=== PATIENT | female | born 1955 | race Caucasian/White ===

== ENCOUNTER 2016-10-26 10:51 | Observation (INO) | payer OTHER ==
[2016-10-26 10:52] VITALS: BMI 20.7
--- NOTE | 2016-10-26 11:55 | ED PDOC ---
Arrival/HPI - General Chief Complaint: Dizziness/Lightheaded Time Seen by Provider: 10/26/16 11:10 Historian: Patient, Family - History of Present Illness Narrative History of Present Illness (Text): 10/26/16 11:35 A 61 year old female, whose past medical history includes hypertension, high cholesterol, diabetes and coronary artery disease, presents to the emergency department complaining of worsening dizziness this morning associated with n/v. Patient states it is like room spinning. Patient reports she feels symptoms are similar to past stroke symptoms. Patient also reports vomiting, but denies any headache, vision changes, weakness, shortness of breath, chest pain, heart palpitations, fevers, abdominal pain or any other complaints at this time. Patient currently reports she has no dizziness or nausea. PMD: Dr. Vail Time/Duration: < week Past Medical History - Provider Review Nursing Documentation Reviewed: Yes - Cardiac Hx Hypertension: Yes Hx Pacemaker: No - Neurological HX Cerebrovascular Accident: Yes Hx Paralysis: No Hx Transient Ischemic Attacks (TIA): Yes - Endocrine/Metabolic Hx Diabetes Mellitus Type 2: Yes - Hematological/Oncological Hx Blood Transfusions: No Hx Blood Transfusion Reaction: No - Musculoskeletal/Rheumatological Hx Musculoskeletal Disorders: No - Psychiatric Hx Emotional Abuse: No Hx Physical Abuse: No Hx Substance Use: No - Surgical History Hx Cardiac Catheterization: Yes (2 stents) - Anesthesia Hx Anesthesia: Yes Hx Anesthesia Reactions: No Hx Malignant Hyperthermia: No - Suicidal Assessment Feels Threatened In Home Enviroment: No Family/Social History - Physician Review Nursing Documentation Reviewed: Yes Family/Social History: No Known Family HX Smoking Status: Never Smoked Hx Alcohol Use: No Hx Substance Use: No Hx Substance Use Treatment: No Allergies/Home Meds Allergies/Adverse Reactions: Allergies No Known Allergies Allergy (Verified 03/01/12 08:55) Home Medications: Home Meds Medication Instructions Recorded Confirmed Aspirin [Ecotrin] 325 mg PO DAILY 03/01/12 03/01/12 Enalapril Maleate [Enalapril] 5 mg PO BID 03/01/12 03/01/12 Gabapentin [Neurontin] 300 mg PO TID 03/01/12 03/01/12 Metformin Hydrochloride [Metformin] 500 mg PO TID 03/01/12 03/01/12 Simvastatin 40 mg PO DIN 03/01/12 03/01/12 Clopidogrel Hydrogen Sulfate 75 mg PO DAILY 03/06/12 03/06/12 [Plavix] Metoprolol Tartrate [Lopressor] 25 mg PO BID 03/06/12 03/06/12 Review of Systems - Physician Review All systems were reviewed & negative as marked: Yes - Review of Systems Constitutional: absent: Fevers Eyes: absent: Vision Changes ENT: Normal Respiratory: absent: SOB Cardiovascular: absent: Chest Pain Gastrointestinal: Vomiting. absent: Abdominal Pain Genitourinary Female: absent: Dysuria Neurological: Dizziness, Disequilibrium. absent: Headache, Focal Weakness Endocrine: absent: Polyuria Hemo/Lymphatic: Normal Physical Exam Vital Signs Reviewed: Yes Vital Signs Temp Pulse Resp BP Pulse Ox 10/26/16 10:52 98.4 F 74 17 188/93 H 100 Temperature: Afebrile Blood Pressure: Hypertensive Pulse: Regular Respiratory Rate: Normal Appearance: Positive for: Well-Appearing, Non-Toxic, Comfortable Pain Distress: None Mental Status: Positive for: Alert and Oriented X 3 - Systems Exam Head: Present: Atraumatic, Normocephalic Pupils: Present: PERRL Extroacular Muscles: Present: EOMI Conjunctiva: Present: Normal Mouth: Present: Moist Mucous Membranes Pharnyx: Present: Normal. No: ERYTHEMA, EXUDATE Neck: Present: Normal Range of Motion Respiratory/Chest: Present: Clear to Auscultation, Good Air Exchange. No: Respiratory Distress, Accessory Muscle Use Cardiovascular: Present: Regular Rate and Rhythm, Normal S1, S2. No: Murmurs Abdomen: Present: Normal Bowel Sounds. No: Tenderness, Distention, Peritoneal Signs Upper Extremity: Present: Normal Inspection. No: Cyanosis, Edema Lower Extremity: Present: Normal Inspection. No: Edema Neurological: Present: GCS=15, CN II-XII Intact, Speech Normal, Motor Func Grossly Intact, Normal Cerebellar Funct, Other (normal alternating lap movments and heel to garcia ) Skin: Present: Warm, Dry, Normal Color. No: Rashes Psychiatric: Present: Alert, Oriented x 3, Normal Insight, Normal Concentration Medical Decision Making ED Course and Treatment: 10/26/16 11:58 Impression: 61 year old female presents with worsening dizziness this morning. Differential Diagnosis included but are not limited to: peripheral vertigo vs. TIA vs. cardiogenic etiology Plan: -- CT head wo contrast -- Chest Xray -- Urinalysis -- Labs -- Reassess and disposition Prior Visits: Notes and results from previous visits were reviewed. On 03/01/12 patient came to emergency department complaining of nausea, vomiting and diaphoresis. Patient was transferred to observation for cardiology evaluation and serial troponins to rule out [place]. Progress Notes: EKG: Ordered, reviewed, and independently interpreted the EKG. Rate : 58 BPM Rhythm : Sinus Bradycardia Interpretation : Normal intervals, normal axis, no ST/T changes Comparison : No previous EKG for comparison. 10/26/16 14:32 Patient with noted history - neuro exam is unremarkable here. Brain CT with no intracranial findings. Given history of previous CVA - will need to place on observation for further neuro eval. Discussed with Dr. Vail, who requested for Dr. Roberts and Dr. Becker to evaluate and placement on her service. - Lab Interpretations Lab Results: 10/26/16 11:35 10/26/16 11:35 Lab Results 10/26/16 12:00: Urine Color Light yellow, Urine Appearance Clear, Urine pH 7.0, Ur Specific [place] 1.010, Urine Protein Negative, Urine Glucose (UA) Negative, Urine Ketones Negative, Urine Blood Negative, Urine Nitrate Negative, Urine Bilirubin Negative, Urine Urobilinogen 0.2, Ur Leukocyte Esterase Negative 10/26/16 11:35: Sodium 137, Potassium 5.5 H, Chloride 101, Carbon Dioxide 26, Anion Gap 16, BUN 18, Creatinine 0.8, Est GFR ( Amer) > 60, Est GFR (Non- Af Amer) > 60, Random Glucose 196 H, Calcium 9.8, Magnesium 1.9, Total Bilirubin 0.7, AST 34, ALT 41, Alkaline Phosphatase 66, Lactate Dehydrogenase 435, Total Creatine Kinase 97, Troponin I < 0.01, Total Protein 8.4 H, Albumin 4.7, Globulin 3.7, Albumin/Globulin Ratio 1.3, Lipase 168 10/26/16 11:35: PT 9.9, INR 0.92 L, APTT 26.2 10/26/16 11:35: WBC 6.7, RBC 4.57, Hgb 12.7, Hct 38.0, MCV 83.2, MCH 27.8, MCHC 33.4, RDW 13.4, Plt Count 287, MPV 9.6, Gran % 66.5, Lymph % (Auto) 28.5, [place] % (Auto) 3.1, Eos % (Auto) 1.5, Baso % (Auto) 0.4, Gran # 4.48, Lymph # 1.9, [place] # 0.2, Eos # 0.1, Baso # 0.03 I have reviewed the lab results: Yes - RAD Interpretation Radiology Orders: 10/26/16 11:35 CHEST TWO VIEWS (PA/LAT) [RAD] Stat 10/26/16 11:36 Brain [HEAD W/O CONTRAST] [CT] Stat - Medication Orders Current Medication Orders: Discontinued Medications Sodium Polystyrene Sulfonate (Kayexalate Oral Susp) 30 gm PO STAT STA Stop: 10/26/16 12:19 Last Admin: 10/26/16 14:01 Dose: 30 gm - Scribe Statement The provider has reviewed the documentation as recorded by the Scribjosé Jimenez All medical record entries made by the Allisonibjosé were at my direction and personally dictated by me. I have reviewed the chart and agree that the record accurately reflects my personal performance of the history, physical exam, medical decision making, and the department course for this patient. I have also personally directed, reviewed, and agree with the discharge instructions and disposition. Disposition/Present on Arrival - Present on Arrival Any Indicators Present on Arrival: No History of DVT/PE: No History of Uncontrolled Diabetes: No Urinary Catheter: No History of Decub. Ulcer: No History Surgical Site Infection Following: None - Disposition Have Diagnosis and Disposition been Completed?: Yes Diagnosis: Dizziness, Vertigo Disposition: HOSPITALIZED Disposition Time: 14:25 Patient Plan: Observation Condition: FAIR
[2016-10-26 11:57] LABS: ADD MANUAL DIFF? NO
[2016-10-26 12:04] LABS: BASO # 0.03 K/mm3 (0.0-2.0); BASO % 0.4 % (0.0-3.0); EOS # 0.1 (0.0-0.7); EOS % 1.5 % (1.5-5.0); GRAN # 4.48 (1.4-6.5); GRAN % 66.5 % (50.0-68.0); LYMPH # 1.9 (1.2-3.4); LYMPH % 28.5 % (22.0-35.0); MEAN CELL VOLUME 83.2 fL (80.0-105.0); MEAN CORPUSCULAR HEMOGLOBIN 27.8 pg (25.0-35.0); MEAN CORPUSCULAR HGB CONC 33.4 g/dl (31.0-37.0); MEAN PLATELET VOLUME 9.6 fl (7.0-11.0); MONO # 0.2 (0.1-0.6); MONO % 3.1 % (1.0-6.0); PLATELET COUNT 287 10^3/uL (120.0-450.0); RED CELL DISTRIBUTION WIDTH 13.4 % (11.5-14.5); WHITE BLOOD COUNT 6.7 10^3/ul (4.5-11.0)
[2016-10-26 12:12] LABS: INR 0.92 (0.93-1.08); PARTIAL THROMBOPLASTIN TIME 26.2 Seconds (23.7-30.8)
[2016-10-26 12:13] LABS: ALB/GLOB RATIO 1.3 (1.1-1.8); ALKALINE PHOSPHATASE 66 U/L (38-133); ALT/SGPT 41 U/L (7-56); AST/SGOT 34 U/L (15-39); BILIRUBIN,TOTAL 0.7 mg/dL (0.2-1.3); BLOOD UREA NITROGEN 18 mg/dL (7-21); CALCIUM 9.8 mg/dL (8.4-10.5); CARBON DIOXIDE 26 mmol/L (21-33); CHLORIDE 101 mmol/L (98-107); GFR AFRICAN-AMERICAN > 60; GLUCOSE,RANDOM 196 mg/dL (70-110); MAGNESIUM 1.9 mg/dL (1.7-2.2); POTASSIUM 5.5 mmol/L (3.6-5.0); SODIUM 137 mmol/L (132-148); TOTAL PROTEIN 8.4 g/dL (5.8-8.3)
[2016-10-26] MEDS ORDERED: Sod Polystyrene Sulf 15 gm/60 ml Oral Susp PO STA (12:18)
[2016-10-26 12:22] LABS: URINE APPEARANCE CLEAR (CLEAR); URINE BILIRUBIN NEGATIVE (NEGATIVE); URINE BLOOD NEGATIVE (NEGATIVE); URINE COLOR LIGHT YELLOW (YELLOW); URINE GLUCOSE (UA) NEGATIVE (NEGATIVE); URINE KETONE NEGATIVE (NEGATIVE); URINE LEUKOCYTE ESTERASE NEGATIVE Leu/uL (NEGATIVE); URINE PROTEIN NEGATIVE mg/dL (<30 mg/dL); URINE UROBILINOGEN 0.2 E.U./dL (<1 E.U./dL)
[2016-10-26 12:32] LABS: TROPONIN I < 0.01 ng/mL
[2016-10-26 12:39] LABS: LIPASE 168 U/L (23-300)
--- NOTE | 2016-10-26 13:26 | CARD ---
APPROVED REPORT EKG Measurement Heart [id number] <Conclusion> Sinus bradycardia Otherwise normal ECG
--- NOTE | 2016-10-26 13:29 | CT ---
PROCEDURE: CT HEAD WITHOUT CONTRAST. HISTORY: dizzy; h/o CVA COMPARISON: None available. TECHNIQUE: Axial computed tomography images were obtained through the head/brain without intravenous contrast. Radiation dose: Total exam DLP = 725.84 mGy-cm. This CT exam was performed using one or more of the following dose reduction techniques: Automated exposure control, adjustment of the mA and/or kV according to patient size, and/or use of iterative reconstruction technique. FINDINGS: HEMORRHAGE: No acute parenchymal, subarachnoid or extra-axial hemorrhage. BRAIN: No mass effect or edema. No atrophy or chronic microvascular ischemic changes. Mild vascular calcifications are present. VENTRICLES: Unremarkable. No hydrocephalus. CALVARIUM: Unremarkable. PARANASAL SINUSES: Mild mucosal thickening seen within the left maxillary antrum. Note made of tiny sclerotic bony densities in 2 posterior superior ethmoid air cells consistent with small osteomas. MASTOID AIR CELLS: Unremarkable as visualized. No inflammatory changes. OTHER FINDINGS: None. IMPRESSION: No acute intracranial hemorrhage. Mild mucosal thickening left maxillary antrum.
--- NOTE | 2016-10-26 17:02 | RAD ---
HISTORY: dizzy COMPARISON: No prior. TECHNIQUE: Chest PA and lateral FINDINGS: LUNGS: No active pulmonary disease. PLEURA: No significant pleural effusion identified. No pneumothorax apparent. CARDIOVASCULAR: Heart size upper limits of normal/ borderline enlarged OSSEOUS STRUCTURES: No minor degenerative changes right shoulder girdle VISUALIZED UPPER ABDOMEN: Normal. OTHER FINDINGS: None. IMPRESSION: No active disease.
--- NOTE | 2016-10-26 21:29 | CON ---
DATE: 10/26/2016 HISTORY OF PRESENT ILLNESS: This is a 61-year-old female with a past medical history of hypertension , high cholesterol, diabetes, coronary artery disease who came to the hospital for worsening of dizzi ness, felt like a spinning-like sensation. No nausea, no vomiting. Her son is at the bedside. HOME MEDICATIONS: Aspirin and . ALLERGIES: No known drug allergy. PHYSICAL EXAMINATION: VITAL SIGNS: Blood pressure 188/93. HEENT: Normocephalic, atraumatic. NECK: Supple. NEUROLOGIC: Alert, awake, oriented x 3. No aphasia. Cranial nerves II through XII were tested. Pu pils reactive. No facial asymmetry. Tongue midline. Motor examination: Moves all the extremities equally. Tone normal. Deep tendon reflexes 1+. Both plantars are downgoing. Sensory appears intac t. Cerebellar and gait deferred. IMPRESSION AND PLAN: Dizziness, vertigo. A CT of the head was negative. Continue present managemen t. Workup is in progress. Will followup. Blas Roberts MD cc: [id number] TT: 10/26/2016 21:29:14 Confirmation # [id number] Dictation # [id number] dn
[2016-10-27 07:06] LABS: CHOLESTEROL 147 mg/dL (130-200)
[2016-10-27 07:15] LABS: TROPONIN I < 0.01 ng/mL
[2016-10-27] MEDS: Insulin Reg-LOW-Coverage SC SCH ×3 (07:43→22:04)
--- NOTE | 2016-10-27 08:55 | HP ---
The patient is a 61-year-old female. The patient was seen and examined on 2016. CHIEF COMPLAINT: Dizziness, lightheadedness. HISTORY OF PRESENT ILLNESS: The patient is a 61-year-old, my private patient, history of hypertension, hypercholesterolemia, diabetes mellitus, coronary artery disease, history of CVA. Came to the Emergency Department complaining of worsening dizziness. This morning, associated with nausea and vomiting. The patient states it was like room spinning. The patient reports that feels the symptoms are similar to the past stroke symptoms. The patient also reports of vomiting, but denies any headache, vision changes, weakness, shortness of breath, fever, chills. 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 Her son called me today about telling mother's condition, but I told him send your mother in [facility] Emergency Room. PAST MEDICAL HISTORY: Hypertension, cerebrovascular accident, TIA, diabetes mellitus, cardiac catheterization. FAMILY HISTORY: Father and mother noncontributory. HABITS: Never smoked, no drugs, no ethanol. ALLERGIES: The patient is not allergic with any medications. HOME MEDICATIONS: Aspirin, enalapril, Neurontin, metformin, simvastatin, Plavix , Lopressor. REVIEW OF SYSTEMS: The patient is seen and examined on the bedside on 2016 in the Emergency Room. That moment, she does not have any vision changes, absent shortness of breath, absent chest pain. Feeling nauseous, but no vomiting that moment. No abdominal pain. No dysuria. Having a feeling of dizziness, disequilibrium. No polyuria, no polydipsia, but the patient has history of blurring of vision. For that, she saw eye doctor a couple of days ago. PHYSICAL EXAMINATION: VITAL SIGNS: Temperature 98.4, pulse 74, respiratory rate 17, blood pressure 188/93, HEENT: Head normocephalic, atraumatic. Eyes, PERRLA. Extraocular muscles intact. Conjunctivae pink. Eyelids unremarkable. Nose patent. Mucous membranes moist. NECK: Supple. No carotid bruit, no JVD, no thyromegaly. CHEST: Bilaterally symmetrical. HEART: S1, S2 positive. LUNGS: Clear to auscultation. ABDOMEN: Soft. Bowel sounds positive. No organomegaly. EXTREMITIES: No edema, no cyanosis. NEUROLOGIC: The patient is awake, alert. Moving all 4 extremities. No focal deficits. Cranial nerves II-XII were grossly intact. LABORATORIES: White blood cells 6.7, hemoglobin 12.7, hematocrit 38.0, platelets 287. Sodium 137, potassium 5.5, BUN 18, creatinine 0.8, glucose 196. ASSESSMENT AND PLAN: The patient is a 61-year-old lady with hyperkalemia, hyperglycemia, came with dizziness, lightheadedness, history of hypertension, hypercholesterolemia, coronary artery disease, diabetes mellitus, history of cerebrovascular accident, history of cardiac catheterization. The patient is seen by Dr. Blas Roberts, neurologist. Waiting for retail personal banker's input. CAT scan of the head is done, is negative. Continue present treatment as per Dr. Roberts. Workup is in the process. Restarted home medication, fingerstick before meals and at bedtime, sliding scale. Repeat labs. Will follow up. Janie Vail MD cc: [id number] TT: 10/27/2016 08:54:51 en MTDD
[2016-10-27] MEDS: Aspirin 325 mg EC Tablets PO SCH (10:01)
--- NOTE | 2016-10-27 14:41 | CON ---
DATE: 10/27/2016 REASON FOR CONSULTATION AND FOLLOWUP: Cardiac evaluation, history of coronary artery disease, admitt ed with dizziness, uncontrolled hypertension. 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 Denies any chest pain, shortness of breath, any palpita tion. History of coronary artery disease on last stress test found. Admitted with dizzy spells in 2 012. The patient had subsequently cardiac workup that shows abnormal, so patient underwent cardiac c atheterization and a stent in the circumflex in 02/2012 and then subsequently staged angioplasty of LA D 2011. Since then, patient remained fairly stable. Denies any chest pain, shortness of breath, but yesterday found to be uncontrolled hypertension and was dizzy, so came to the Emergency Room. Denie s any recent history of chest pain, no shortness of breath, any palpitation. PAST MEDICAL HISTORY: Significant for coronary artery disease, abnormal stress test and subsequently underwent cardiac catheterization in 02/2012 and stented on the circumflex. At that time, cardiac ca theterization revealed left main normal, bifurcated to LAD and circumflex, LAD has focal 90% stenosis , gives 2 diagonal branches, circumflex 80% stenosis, OM1, OM2 and right coronary artery has 40% sten osis, PLV branch 90% stenosis, dominant system. Status post staged PTCA of LAD in 03/2012. PREVIOUS CARDIAC WORKUP: Stress test on 03/05/2012, myocardial perfusion study, walked on treadmill 6 minutes, 27 seconds and is abnormal, so patient underwent cardiac catheterization subsequently and 2 -vessel angioplasty. First, patient underwent 03/06/2012 circumflex and then LAD 04/17/2012. The pat ient remained stable. Denies any chest pain, shortness of breath, any palpitation. CURRENT MEDICATIONS: The patient is taking simvastatin, gabapentin, metformin, amlodipine, aspirin, metoprolol. REVIEW OF SYSTEMS: As per follows. ALLERGIES: No known drug allergy. PHYSICAL EXAMINATION: VITAL SIGNS: Temperature afebrile, heart rate , blood pressure 124/75. HEENT: PERRLA. Extraocular muscles intact. NECK: Supple. No carotid bruits. No thyromegaly. CHEST: Clear to auscultation. HEART: S1, S2 regular. ABDOMEN: Soft. EXTREMITIES: Clubbing, cyanosis negative. BLOOD WORKUP: WBC 6.7, hemoglobin 12.7, hematocrit 38.0, platelet count 287. Chemistry shows sodium 130, potassium 5.5, chloride 101, carbon dioxide 26, anion gap of 16, BUN 18, creatinine 0.8. Tropo sujey 0.01, negative. IMPRESSION: Though patient admitted with dizziness because of uncontrolled hypertension, given the [facility] risk factors for coronary artery disease, diabetes, hypertension, history of 2-vessel stent i n 02/2012 and 01/2012 LAD, never had a stress test, will schedule a stress test and echo while the melanie ent is here. If the patient is getting discharged, we will do as outpatient for risk stratification. Discussed with the patient. The patient is noncompliant with office visits. Interim, continue mec lizine. Continue aspirin. Continue metformin. Continue atorvastatin. Continue beta hazel. We w ill follow with you. Thank you, Dr. Vail, for providing us the opportunity in taking care of the patient. Saúl Bishop MD cc: [id number] TT: 10/27/2016 14:40:31 Confirmation # [id number] Dictation # [id number] en
[2016-10-28 00:27] VITALS: RESP 20
[2016-10-28 06:46] LABS: HEMATOCRIT 37.7 % (36.0-48.0); MEAN CELL VOLUME 83.8 fL (80.0-105.0); MEAN CORPUSCULAR HEMOGLOBIN 27.8 pg (25.0-35.0); MEAN CORPUSCULAR HGB CONC 33.2 g/dl (31.0-37.0); MEAN PLATELET VOLUME 9.6 fl (7.0-11.0); RED CELL DISTRIBUTION WIDTH 13.6 % (11.5-14.5); WHITE BLOOD COUNT 6.3 10^3/ul (4.5-11.0)
[2016-10-28 07:04] LABS: BLOOD UREA NITROGEN 23 mg/dL (7-21); CALCIUM 9.5 mg/dL (8.4-10.5); CARBON DIOXIDE 28 mmol/L (21-33); CHLORIDE 103 mmol/L (98-107); GFR AFRICAN-AMERICAN > 60; GLUCOSE,RANDOM 120 mg/dL (70-110); POTASSIUM 4.2 mmol/L (3.6-5.0); SODIUM 142 mmol/L (132-148)
--- NOTE | 2016-10-28 07:37 | PN ---
DATE: 10/27/2016 The patient is a 61-year-old. The patient was seen and examined on the bedside , looks comfortable. Chest pain is gone. Headache is better. Still feeling in the left side on the lateral side sometimes a black line is coming. Neurologist is on the case. [employer] Vehicle Supervisor is on the case. No fever, no chills, no diarrhea, no constipation. PHYSICAL EXAMINATION: VITAL SIGNS: Temperature 97.9, pulse 69, blood pressure 124/ 80 , respiratory rate 18. HEENT: Head normocephalic, atraumatic. Eyes: PERRLA. Extraocular muscles intact. Conjunctivae pink. Eyelids unremarkable. Nose patent. NECK: Supple. No carotid bruit, no JVD, no thyromegaly. CHEST: Bilaterally symmetrical. HEART: S1, S2 positive. LUNGS: Clear to auscultation. ABDOMEN: Soft. Bowel sounds present. No organomegaly. EXTREMITIES: No edema, no cyanosis. NEUROLOGIC: The patient is awake, alert, moving all 4 extremities. No focal deficits. MEDICATIONS: Antivert, Ecotrin, Glucophage, insulin, Lipitor, Lopressor, Neurontin, amlodipine, Lopressor. LABORATORIES: We do not have recent labs today, but I reviewed old labs. Triglycerides 188, cholesterol is 147. ASSESSMENT AND PLAN: The patient is a 61-year-old lady, came with headache, dizziness, chest pain, sanchez floating in the left side of the eye, history of hyperkalemia, diabetes mellitus, hypertriglyceridemia. Seen by the laboratory equipment cleaner , Dr. Saúl Bishop. History of coronary artery disease, cardiac catheterization in 2011 and stent on the circumflex, uncontrolled diabetes mellitus, was admitted for dizziness because of uncontrolled hypertension. Given multiple risk factors for coronary artery disease, diabetes, hypertension , 2-vessel stent on 03/19/2012 and 02/17/2012. After that has never had a stress test. Will go for stress test tomorrow and echo as per laboratory equipment cleaner. The patient is noncompliant with office visits. Interim, continue meclizine, aspirin, metformin, atorvastatin, beta blockers. Gastrointestinal and deep vein thrombosis prophylaxis. Reviewed laboratory equipment cleaner's notes. Reviewed neurologist's notes. Will follow up. Janie Vail MD cc: [id number] TT: 10/28/2016 07:37:37 Confirmation # [id number] Dictation # [id number] en MTDD
[2016-10-28] MEDS: Insulin Reg-LOW-Coverage SC SCH ×2 (08:05→13:58)
[2016-10-28 08:10] VITALS: TEMP 96.6; O2SAT 100
[2016-10-28] MEDS: Aspirin 325 mg EC Tablets PO SCH (09:52)
--- NOTE | 2016-10-28 10:26 | PN ---
DATE: 10/28/2016 The patient is in room 360, bed 2. REASON FOR CONSULTATION AND FOLLOWUP: Coronary artery disease, hypertension, diabetes, dizziness, un controlled hypertension. 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 Now she is feeling better. She i s lying flat in bed without any chest pain, shortness of breath or palpitation. The patient's detail ed history of cardiac workup has been mentioned in our consult dated 10/26/2016. PHYSICAL EXAMINATION: VITAL SIGNS: Blood pressure 156/80, respirations 20, pulse 62. Yesterday, pressure went down to 100 /57. The patient is afebrile. HEAD: Normocephalic. EYES: Pupils are normal. Conjunctivae are normal. NOSE AND THROAT: Normal. NECK: JVP low. Carotids equal. THORAX: AP diameter normal. LUNGS: Clear. CARDIOVASCULAR: S1, S2. ABDOMEN: Soft, nontender, no organomegaly. Bowel sounds normal. EXTREMITIES: No clubbing, no cyanosis. LABORATORY DATA: WBC 6.3, hemoglobin 12.5, hematocrit 37.7, platelets 279. Sodium 142, potassium 4. 2, BUN 23, creatinine 0.9. Random sugar 120. TSH 0.5. DIAGNOSES: Dizziness, uncontrolled hypertension, diabetes, coronary artery disease, status 2-vessel angioplasty, stent insertion in 2011. PLAN: The patient's echo and stress test have been ordered, which probably both will be done today. We will continue meclizine 25 mg p.o. q. 8 hours, aspirin 325 mg p.o. daily, metformin 1000 mg b.i.d ., Lipitor 20 mg daily, metoprolol 25 b.i.d., Neurontin 300 mg p.o. t.i.d., amlodipine 10 mg daily, l isinopril 20 mg p.o. daily. We will continue present therapy, and we will follow stress test and echo reports. Saúl Becker MD cc: [id number] TT: 10/28/2016 10:25:09 Confirmation # [id number] Dictation # [id number] jn
[2016-10-28 10:35] VITALS: BP 156/80
[2016-10-28 10:49] VITALS: PULSE 50
--- NOTE | 2016-10-28 17:48 | CARD ---
APPROVED REPORT EXAM: Two-dimensional and M-mode echocardiogram with Doppler and color Doppler. INDICATION CP/LVFX 2D DIMENSIONS Left Atrium (2D)3.9 (1.6-4.0cm)IVSd1.3 (0.7-1.1cm) LVDd4.5 (3.9-5.9cm)PWd1.3 (0.7-1.1cm) LVDs3.3 (2.5-4.0cm)FS (%) 27.0 % LVEF (%)52.8 (>50%) M-Mode DIMENSIONS Aortic Root2.90 (2.2-3.7cm)Aortic Cusp Exc.1.70 (1.5-2.0cm) Aortic Valve AoV Peak Ipjtefzv978.0cm/Thong Peak GR.8mmHg Mitral Valve MV E Fyeqwzns23.8cm/sMV A Wqmagvjm90.7cm/sE/A ratio0.9 TDI Lateral E' Peak V10.60cm/sMedial E' Peak V6.34cm/sE/Lateral E'5.4 E/Medial E'9.0 Pulmonary Valve PV Peak Zdiayblp83.1cm/sPV Peak Grad.1mmHg Tricuspid Valve TR Peak Sresfbnj606tj/sRAP [id number] Peak Gr.17mmHg [id number] LEFT VENTRICLE The left ventricle is normal size. There is normal left ventricular wall thickness. LOw normal Ef-50-55% There is mild hypokinesis in the apical anterior wall. Transmitral Doppler flow pattern is Grade III-reversible restrictive diastolic dysfunction. No left ventricle thrombus noted on this study. There is no ventricular septal defect visualized. There is no left ventricular aneurysm. There is no mass noted in the left ventricle. RIGHT VENTRICLE The right ventricle is normal size. There is normal right ventricular wall thickness. The right ventricular systolic function is normal. ATRIA The left atrium size is normal. The right atrium size is normal. The interatrial septum is intact with no evidence for an atrial septal defect. AORTIC VALVE The aortic valve is thickened but opens well. The aortic valve is calcified but opens well.( Right coronary Cusp) There is trace aortic regurgitation. There is no aortic valvular stenosis. There is no aortic valvular vegetation. MITRAL VALVE The mitral valve is thickened but opens well. Mitral annular calcification is mild. Mitral regurgitation is mild. There is no mitral valve stenosis. There is no evidence of mitral valve prolapse. TRICUSPID VALVE The tricuspid valve leaflets are thickened , but open well. There is trace tricuspid regurgitation.RVSP-27 mmof Hg. There is no tricuspid valve stenosis. There is no tricuspid valve prolapse or vegetation. PULMONIC VALVE The pulmonary valve is normal in structure. There is no pulmonic valvular regurgitation. There is no pulmonic valvular stenosis. GREAT VESSELS The aortic root is normal in size. The ascending aorta is normal in size. The pulmonary artery is normal. The IVC is normal in size and collapses >50% with inspiration. PERICARDIAL EFFUSION There is no pleural effusion. There is no pericardial effusion. <Conclusion> Normal chamber Size. EF-50-55% Trace TR, RVSP-27 mmof Hg. Mild MR, Trace AR.
--- NOTE | 2016-10-28 22:39 | CARD ---
APPROVED REPORT Protocol: LUZ Test Type: Sestamibi Stress Test Attending Physician: Dr. Saúl Becker Referring Physician: Dr. Janie Vail Test Indications: Chest Pain Height:5 ft 3 in Weight:122lbs Medications: Norvasc, Aspirin, Lipitor, Pepcid, Neurontin, Zestril, Antivert, Lopressor, Glucophage Medical History: 61 y/o female with a history htn, diabetes, s/p PTCA with stents x 2 placed Target HR: 161 bpm Resting ECG: RSR. Prolonged [place] Interval. Resting Heart Rate: 71 bpm Resting Blood Pressure: 148/80mmHg Submaximum (85%): 137 bpm POST EXERCISE Reason for Termination: Fatigue Target HR: No Max HR: 137 bpm 85% of Maximum Predicted HR: 161 bpm Exercise duration: 07:44 min:sec, 3 Stage Exercise capacity: 9.6METs Max Blood Pressure: 180/60mmHg Blood Pressure response to exercise: resting hypertension - appropriate response Heart Rate response to exercise: appropriate Chest Pain: No, none Angina index: 0 Arrhythmia: No, none ST Change: Yes, 1-2mm ST Depression in 2,3,AVF,V5,V6. Deviation: 0 mm TEST SUMMARY [id number]/80.0. [id number]/80.0. PRETESTHYPERV.00:[id number]/80.0. PRETESTWARM-UP00:[id number]/80.0. EXERCISESTAGE 103:[id number]/80.0. EXERCISESTAGE 203:[id number]/60.0. EXERCISESTAGE 301:[id number]/60.0. [id number]:290.00.01.0.130/60.0. INTERPRETATION Stress EKG Conclusion: MYOVIEW NUCLEAR STRESS TEST STOPPED AFTER 7 MINUTES QAND 44 SECONDS OF LUZ PROTOCOL DUE TO FATIGUE. PATIENT ACHIEVED 85% OF PREDICTED HEART RATE.ST SEGMENT DEPRESSION 1-1.5MM IN 2,3,AVF,V5,V6, NUCLEAR SCAN REPORT PENDING. Signed by Saúl Becker Electronically Approved: 10/28/2016 12:35:43 EXAM: Myocardial Perfusion REST/STRESS Stress Test Type: Exercise Treadmill Imaging Protocol Rest Spect myocardial perfusion imaging was performed in supine position 45 minutes following the injection of 10.8 mCi of Tc-99 Myoview. At peak stress, the patient was injected intravenously with 30.7mCi of Tc-99 tetrofosmin after an exercise time of 7 minutes and 44 seconds. Gated Stress Spect was performed 60 minutes after intravenous Tc-99 Myoview injection. The images were gated to evaluate regional wall motion and calculate ventricular ejection fraction.Images were reconstructed using backfilter projection method in short horizontal and verticle long axis. Spect slices were generated. LV Perfusion The quality of the study is good. The left ventricle is within normal limits in size with thickened myocardium. The right ventricle is unremarkable. The lung uptake is normal. The distribution of tracer reveals a small area of mildly decreased perfusion involving apical wall on the stress study. The remainder of the LV myocardium is unremarkable. The rest myocardial perfusion study shows no significant change. Wall Motion Wall motion study shows good contractility of the left ventricle. LVEF = 59%. Conclusion 1. Essentially normal SPECT myocardial perfusion study. 2. Fixed, mild, apical defect is most likely due to breast attenuation. 3. Normal gated wall motion of the left ventricle.
--- NOTE | 2016-11-05 19:21 | DS ---
CHIEF COMPLAINT: Dizziness and lightheadedness. HISTORY OF PRESENT ILLNESS: The patient is a 61-year-old, my private patient, has history of hyperte nsion, hypercholesterolemia, diabetes mellitus, coronary artery disease, status post cardiac stenting , came to the Emergency Room complaining of worsening dizziness, headache, associated nausea, vomitin g. According to patient, room was spinning. According to the patient, she had similar complaints wh en last time she found out that she had a stroke. We admitted the patient, did a CAT scan of the hea d, chest x-ray, stress test. The patient was seen by Dr. Becker, community services officer. Dr. Roberts cleared th e patient, discharged home. Medicine prescriptions given. We will follow up as outpatient. PAST MEDICAL HISTORY: Hypertension, cerebrovascular accident, TIA, diabetes mellitus, cardiac cathet erization. FAMILY HISTORY: Father and mother noncontributory. HABITS: Never smoked, no drugs, no ethanol. ALLERGIES: The patient is not allergic to any medications. HOME MEDICATIONS: Aspirin, enalapril, Neurontin, metformin, simvastatin, Plavix and Lopressor. REVIEW OF SYSTEMS: The patient seen and examined on the bedside, looks comfortable. Headache and di zziness is better. No more spinning of the head. No fever, no chills. PHYSICAL EXAMINATION: VITAL SIGNS: Pulse is , blood pressure 153/80, respiratory rate 18, temperature 98.6. HEENT: Head normocephalic, atraumatic. Eyes: PERRLA. Extraocular movements intact. Conjunctivae a re clear. Nose patent. Mucous membranes moist. NECK: Supple. No carotid bruit, JVD or thyromegaly. CHEST: Bilaterally symmetrical. HEART: S1, S2 positive. LUNGS: Clear to auscultation. ABDOMEN: Soft. Bowel sounds present. No organomegaly. EXTREMITIES: No edema, no cyanosis. NEUROLOGIC: The patient is awake, alert, moving all 4 extremities. No focal deficit. LABORATORY DATA: White blood cells 6.3, hemoglobin 12.5, hematocrit 37.7, platelets 279. Sodium 142 , potassium 4.2, BUN 23, creatinine 0.9. Glucose 159. ASSESSMENT AND PLAN: The patient is a 61-year-old lady with increased BUN, uncontrolled diabetes jet litus type 2, insulin-requiring, hypertriglyceridemia, came with headache, uncontrollable blood press ure, seen by Dr. Becker. The patient is status post 2-vessel angioplasty, stent insertion 2011. The patient's stress test and echocardiography was done, reviewed by me. Continue meclizine, aspirin, m etformin, Lipitor, metoprolol, Neurontin, amlodipine, lisinopril. Follow up in my office. Janie Vail MD cc: [id number] TT: 11/05/2016 19:20:39 rn
== END 2016-10-28 18:45 | disposition home or self-care (01) ==
LOC: ED 10:51 → ERH 14:33 → 2RNO 10-27 01:08 → 3RNO 10-27 16:13
PROVIDERS: ADMIT Internal Medicine; ATTEND Internal Medicine
DX: I10 Essential (primary) hypertension (principal); R42 Dizziness and giddiness; I25.10 Atherosclerotic heart disease of native coronary artery without angina pectoris; E11.65 Type 2 diabetes mellitus with hyperglycemia; E87.5 Hyperkalemia; R07.9 Chest pain, unspecified; E78.00 Pure hypercholesterolemia, unspecified; Z91.19 Patient's noncompliance with other medical treatment and regimen; Z86.73 Personal history of transient ischemic attack (TIA), and cerebral infarction without residual deficits; Z95.5 Presence of coronary angioplasty implant and graft
CPT/HCPCS: 36415; 70450; 71020; 78452; 80048; 80053; 80061; 81003; 82550; 82948; 83036; 83615; 83690; 83735; 84443; 84484; 85025; 85027; 85610; 85730; 87086; 93005; 93017; 93306; 99285; A9502; G0378